=== PATIENT | female | born 1935 | race Caucasian/White ===

== ENCOUNTER 2017-01-07 04:06 | Observation (INO) ==
[2017-01-07] MEDS ORDERED: ASPIRIN PO ONE (04:27)
--- NOTE | 2017-01-07 04:29 | PROVIDER DOCUMENTATION ---
HPI-Chest Pain - General Chief Complaint: Chest Pain Stated Complaint: CP Time Seen by Provider: 01/07/17 04:22 Source: patient (Patient is a 81 year old white female with history of atrial fibrillation, HTN,recent hip replacement, and atrial fibrillation who presents by car complaining of 9/10 sharp/dull left sided chest discomfort that radiates down left arm since 0230 today that was not relieved by 3 nitroglycerin. Patient has already taken 1 baby aspirin in past 24 hours[address] Denies [address] of [address] Followed by v belt mold assembler and curer in [place] and Dr. Murray.) Allergies/Adverse Reactions: Patient Allergies Allergy/AdvReac Type Severity Reaction Status Date / Time Penicillins Allergy Severe SWELLING Verified 01/07/17 04:35 Home Medications: Home Medication List Medication Instructions Recorded Confirmed Last Taken Type Buspirone HCl 15 mg PO DAILY 11/14/12 01/07/17 01/06/17 History Hydrochlorothiazide 25 mg PO DAILY 11/14/12 01/07/17 01/06/17 History Levothyroxine [Synthroid] 50 microgm PO DAILY 11/14/12 01/07/17 01/06/17 History Metoprolol Succinate E.r. [Toprol 25 mg PO DAILY 11/14/12 01/07/17 01/06/17 History Xl] Aspirin [Aspirin EC] 81 mg PO DAILY 11/17/15 01/07/17 01/06/17 History Ergocalciferol (Vitamin D2) 1 tab PO DAILY 01/07/17 01/07/17 01/06/17 History [Drisdol] Review of Systems - Adult - REVIEW OF SYSTEMS - ADULT Constitutional: denies: chills, fever Eyes: denies: decreased vision Ears, Nose, Mouth & Throat: reports: no symptoms reported Cardiovascular: reports: chest pain. denies: palpitations, syncope Respiratory: denies: shortness of breath Gastrointestinal: denies: abdominal pain, nausea, vomiting Genitourinary: denies: dysuria Musculoskeletal: denies: back pain, neck pain Integumentary: denies: rash Neurological: reports: no symptoms reported Psychiatric: reports: no symptoms reported Endocrine: reports: no symptoms reported Hematologic/Lymphatic: reports: no symptoms reported Allergic/Immunologic: reports: no symptoms reported All Other Systems: Reviewed and Negative Past History - Adult - PAST MEDICAL HISTORY-ADULT Review of Records: reports: Old Records Reviewed, Nursing Assessment Review, Medications Reviewed, Social history reviewed & non-contributory. Major Childhood Illnesses: reports: denies history Cardiovascular: reports: A-Fib, angina, HTN, hyperlipidemia Endocrine/Immune: reports: thyroid disorder - PRIOR SURGERIES/PROCEDURES Surgical/Procedure History: reports: hysterectomy, orthopedic (extremity), other (sinus surgery,) - IMMUNIZATION STATUS Childhood Immunizations: See Nurse Assessment Flu Vaccine: See Nurse Assessment - FAMILY HISTORY Family History: reviewed, not pertinent - SOCIAL HISTORY Smoking: denies Substance Use: none/never Alcohol Use Frequency: occasionally (wine) Living Situation: alone Physical Exam-General - PHYSICAL EXAM-ADULT Initial Vital Signs Reviewed: Yes - CONSTITUTIONAL General Appearance: appears well, alert, no apparent distress, other ( nondiaphoretic) - EYES Eyes: other (clear) - HEAD, EARS, NOSE, MOUTH & THROAT HENMT: normocephalic/atraumatic, moist mucous membranes - NECK Neck: non-tender, supple - RESPIRATORY Respiratory: lungs clear, other (tender to palpation over left chest wall) - CARDIOVASCULAR Cardiovascular: regular rate, rhythm - GASTROINTESTINAL (ABDOMEN) Abdominal Exam: normal bowel sounds, non tender, soft. negative: guarding, rebound - MUSCULOSKELETAL Back Exam: no CVA tenderness Extremity: normal range of motion, non-tender Peripheral Pulses: radial (R): 2+, radial (L): 2+, dorsalis-pedis (R): 2+, dorsalis-pedis (L): 2+ - SKIN Integumentary: normal color, normal turgor - NEUROLOGIC Neurologic: grossly normal - PSYCHIATRIC Psych/Mental Status: normal mood/affect, normal thought content Progress - PLAN OF CARE/RESULTS Progress/Plan/Lab Results: Vital Signs - 8 hr 01/07/17 04:17 01/07/17 05:25 01/07/17 05:27 Temperature 97.4 F L Pulse Rate 72 68 68 Respiratory Rate 16 17 20 Blood Pressure 129/74 115/69 115/69 O2 Sat by Pulse Oximetry 100 97 97 Laboratory Results - last 24 hr 01/07/17 01/07/17 01/07/17 04:20 04:20 04:20 WBC 13.82 H RBC 4.13 L Hgb 13.0 Hct 38.6 MCV 93.5 MCH 31.5 H MCHC 33.7 RDW Std Deviation 14.4 Plt Count 250 MPV 11.2 H Immature Gran % (Auto) 0.7 H Neut % (Auto) 61.7 Lymph % (Auto) 22.1 [place] % (Auto) 13.4 H Eos % (Auto) 1.9 Baso % (Auto) 0.2 Immature Gran # (Auto) 0.10 H Neut # (Auto) 8.52 H Lymph # (Auto) 3.06 [place] # (Auto) 1.85 H Eos # (Auto) 0.26 Baso # (Auto) 0.03 PT INR PTT (Actin FS) D-Dimer 0.38 Sodium 133 L Potassium 3.8 Chloride 95 L Carbon Dioxide 20 L Anion Gap 18 BUN 21 Creatinine 0.6 Estimated GFR/1.73 m2 > 60 BUN/Creatinine Ratio 35 Glucose 90 Calculated Osmolality 269 Calcium 9.0 Magnesium 1.8 Total Bilirubin 0.40 AST 17 ALT 11 Alkaline Phosphatase 47 Creatine Kinase 48 Troponin T Zea-B-Isoysevkimf Pept Total Protein 6.6 Albumin 3.6 Globulin 3.0 Albumin/Globulin Ratio 1.2 01/07/17 01/07/17 01/07/17 04:20 04:20 04:20 WBC RBC Hgb Hct MCV MCH MCHC RDW Std Deviation Plt Count MPV Immature Gran % (Auto) Neut % (Auto) Lymph % (Auto) [place] % (Auto) Eos % (Auto) Baso % (Auto) Immature Gran # (Auto) Neut # (Auto) Lymph # (Auto) [place] # (Auto) Eos # (Auto) Baso # (Auto) PT 11.3 INR 1.07 PTT (Actin FS) 28.9 D-Dimer Sodium Potassium Chloride Carbon Dioxide Anion Gap BUN Creatinine Estimated GFR/1.73 m2 BUN/Creatinine Ratio Glucose Calculated Osmolality Calcium Magnesium Total Bilirubin AST ALT Alkaline Phosphatase Creatine Kinase Troponin T < 0.010 Lsd-V-Zkwrgjcdrka Pept 83 Total Protein Albumin Globulin Albumin/Globulin Ratio Orders Category Date Time Status Cardiac Monitoring DIRECTED Care 01/07/17 04:23 Active Oxygen Therapy- ED Nursing DIRECTED Care 01/07/17 04:23 Active Saline Loc NOW Care 01/07/17 04:23 Active CHEST-PORTABLE [RAD] Stat Exams 01/07/17 04:24 Taken CBC WITH ELECTRONIC DIFF [HEME] Stat Lab 01/07/17 04:20 Completed CK PROFILE [SP CHEM] Stat Lab 01/07/17 04:20 Completed COMPREHENSIVE METABOLIC PANEL [CHEM] Stat Lab 01/07/17 04:20 Completed D-DIMER [CHEM] Stat Lab 01/07/17 04:20 Completed MAGNESIUM [CHEM] Stat Lab 01/07/17 04:20 Completed PRO B-NATRIURETIC PEPTIDE Stat Lab 01/07/17 04:20 Received PROTIME WITH INR [COAG] Stat Lab 01/07/17 04:20 Completed PTT [COAG] Stat Lab 01/07/17 04:20 Completed TROPONIN T Stat Lab 01/07/17 04:20 Completed Aspirin Med 01/07/17 04:27 Discontinued 243 mg PO NOW ONE EKG [EKG] Stat Ther 01/07/17 04:09 Draft EKG [EKG] Stat Ther 01/07/17 05:26 Ordered Result Diagrams: 01/07/17 04:20 01/07/17 04:20 - EKG 1 Time of EKG reading by physician:: 04:13 EKG Read and Signed by:: Wagner Zhao Rate: 75 [place]: normal QRS: normal [place] Interval: normal ST Wave: normal Prior EKG Comparison: no prior EKG Comments: no STEMI - XRAY 1 XRAY Study: Chest XRAY Interpretation: nad - CONSULTS/PCP/HOSPITALIST Notification #1 *Consult/PCP/Hospitalist*: Dr. Carbajal, hospitalist Time Discussed: 05:28 Consult Disposition: Admit Departure - Departure Time of Disposition Decision: 05:30 DIAGNOSIS: Chest pain Qualifiers: Chest pain type: unspecified Qualified Code(s): R07.9 - Chest pain, unspecified Disposition: ADMITTED INPATIENT 09 Certified Medical Emergency: Emergent Condition: Stable Referrals and Follow-Ups: Meggan Murray MD [Primary Care Provider] - - Critical Care Note This patient required my direct & personal management of CC.: No
[2017-01-07 04:53] LABS: MANUAL DIFF NEEDED? NO
[2017-01-07 04:56] LABS: BASO% 0.2 % (0.0-0.8); EOS# 0.26 X1000 (0.0-0.7); EOS% 1.9 % (0.0-10.0); HEMATOCRIT 38.6 % (37.0-47.0); IMM GRAN% 0.7 % (0.0-0.5); LYMPH# 3.06 X1000 (1.2-3.4); LYMPH% 22.1 % (20.5-51.1); MCH 31.5 PG (27-31); MCHC 33.7 g/dL (33-37); MCV 93.5 FL (81-99); MONO# 1.85 X1000 (0.11-0.59); MONO% 13.4 % (1.7-9.3); MPV 11.2 FL (7.4-10.4); NEUT% 61.7 % (42.2-75.2); PLT 250 X1000 (130-400); RBC 4.13 XMIL (4.2-5.4)
[2017-01-07 05:06] LABS: INR 1.07; PROTIME 11.3 Seconds (9.2-11.7); PTT 28.9 Seconds (22.0-36.0)
[2017-01-07 05:18] LABS: AGAP 18; ALBUMIN 3.6 g/dL (3.5-5.0); ALKALINE PHOSPHATASE 47 U/L (32-104); BUN 21 mg/dL (8-22); CHLORIDE 95 mmol/L (98-107); CK PROFILE 48 U/L (24-173); COSMO 269; GOT 17 U/L (10-30); GPT 11 U/L (10-36); MAGNESIUM 1.8 mg/dL (1.5-2.7); POTASSIUM 3.8 mmol/L (3.5-5.1); SODIUM 133 mmol/L (136-145); TCO2 20 mmol/L (25-35); TOTAL PROTEIN 6.6 g/dL (6.3-8.3)
--- NOTE | 2017-01-07 05:18 | EKG Report ---
Test Performed on : 01/07/2017 04:12:36 AM Test Reason : CP Blood Pressure : / mmHG Vent. Rate : 075 BPM Atrial Rate : 075 BPM P-R Int : 230 ms QRS Dur : 070 ms QT Int : 396 ms P-R-T Axes : 047 008 087 degrees QTc Int : 442 ms Sinus rhythm. with 1st degree AV block. with premature atrial complexes. Septal infarct , age undetermined Abnormal ECG When compared with ECG of 17-NOV-2015 00:26, premature ventricular complexes. are no longer present Septal infarct is now present T wave inversion now evident in Lateral leads Unconfirmed Result
[2017-01-07] MEDS ORDERED: MORPHINE IV ONE (05:30)
[2017-01-07] MEDS ORDERED: ZOFRAN IV ONE (05:31)
--- NOTE | 2017-01-07 06:34 | EKG Report ---
Test Performed on : 01/07/2017 05:31:35 AM Test Reason : CP Blood Pressure : / mmHG Vent. Rate : 065 BPM Atrial Rate : 065 BPM P-R Int : 258 ms QRS Dur : 078 ms QT Int : 418 ms P-R-T Axes : 043 010 087 degrees QTc Int : 434 ms Sinus rhythm. with 1st degree AV block. Septal infarct (cited on or before 07-JAN-2017) Abnormal ECG When compared with ECG of 07-JAN-2017 04:12, (Unconfirmed) premature atrial complexes. are no longer present Unconfirmed Result
[2017-01-07] MEDS ORDERED: TORADOL IV ONE (06:40)
[2017-01-07] MEDS ORDERED: NS 1,000 ML IV SCH (06:41)
[2017-01-07 07:16] LABS: URINE MICRO REVIEW NEEDED? NO; URINE SOURCE CLEAN CATCH
--- NOTE | 2017-01-07 07:16 | HISTORY AND PHYSICAL ---
CHIEF COMPLAINT: Chest pain. HISTORY OF PRESENT ILLNESS: This is an 81-year-old female with hypertension who presents from home with chest pain left-sided radiating to her shoulder and arm and back starting 2 or 3 o'clock this morning. The patient has a history of recurrent chest pain with a kind of a negative workup. She was here last year in October, even had a cardiac cath which was negative. She now sees a teachers' aide in [place], Dr. Ham, maybe, and is being followed by her. She just had a workup in October including I think what sounds like a chemical stress test, a pharmacological stress test which was negative. She did have some cardiac issues associated with her hip surgery. She had recent left hip surgery. Again pain was described as a 9/10, sharp, radiating to her back, shoulder and arm. No shortness of breath or nausea. Workup in the ER was negative. She was placed in observation as pain. PAST MEDICAL HISTORY: 1. Hypertension. She may have an atrial arrhythmias, not 100% on that. 2. Depression, anxiety. 3. Hypothyroidism. PAST SURGICAL HISTORY: She has had the hip fracture repair. SOCIAL HISTORY: No tobacco. Occasional alcohol. I think she lives alone. FAMILY HISTORY: Positive for CAD in mother and father who were both , I think, later in life associated with that. ALLERGIES: Penicillin. MEDICATIONS: 1. Aspirin 81 daily. 2. Buspirone 15 [place]. 3[place] [address] units daily. 4. Hydrochlorothiazide 25 daily. 5. Synthroid 50 daily. 6. Toprol-XL 25 daily. REVIEW OF SYSTEMS: Otherwise negative. PHYSICAL EXAMINATION: VITAL SIGNS: Blood pressure 115/69, heart rate 68, respiratory rate 20, temperature 97.4 degrees, 97% on room air. GENERAL: A well-developed female in no acute distress. HEAD: Normocephalic, atraumatic. EYES: Pupils equal, round, reactive to light. Extraocular movements were intact. EAR/NOSE/THROAT: Moist mucous membranes. NECK: Supple. CARDIOVASCULAR EXAM: Regular rate and rhythm. No thyromegaly. CARDIOVASCULAR: Regular rate and rhythm. PULMONARY: Bilateral breath sounds. Clear to auscultation. GI: Soft, nontender, nondistended. Bowel sounds are positive. EXTREMITIES: No clubbing or cyanosis. LYMPHATICS: No peripheral edema. NEUROLOGICAL: Nonfocal. MUSCULOSKELETAL: 4/5 in all 4 extremities. LABORATORY DATA: White count of 13, CMP was normal. 1. Atypical chest pain. We will continue to monitor with serial cardiac enzymes. She has had a negative workup in the past and a recent negative workup, so I am going to get cardiology's opinion just to see if anything else needs to be done besides a rule out, and then patient really wants to go home so, we will follow accordingly cardiac recommendations. 2. Hypertension. Continue regular medications. I am going to put her on some Prilosec, and I think this may be more musculoskeletal related to the intense physical therapy she did the day before. We will continue to follow. cc: MD Meggan Ponce MD
[2017-01-07 07:19] LABS: BILIRUBIN URINE NEGATIVE (NEGATIVE); BLOOD URINE NEGATIVE (NEGATIVE); COLOR YELLOW; GLUCOSE URINE NEGATIVE (NEGATIVE); LEUKOCYTES URINE SMALL (NEGATIVE); NITRITE URINE NEGATIVE (NEGATIVE); PH URINE 5.5; PROTEIN URINE NEGATIVE (NEGATIVE); SP GRAVITY URINE 1.013; TURBIDITY URINE CLEAR (CLEAR); UROBILINOGEN URINE NORMAL (NORMAL)
[2017-01-07 07:20] LABS: UR EPITHELIAL CELLS <10 /HPF (<10); URINE BACTERIA NEGATIVE /HPF; URINE CULTURE NEEDED? YES; URINE RBC <10 /HPF (<10); URINE WBC <10 /HPF (<10)
--- NOTE | 2017-01-07 07:24 | Diag Imaging Result Doc PS360 ---
CHEST-PORTABLE - 01/07/2017 INDICATION: chest pain TECHNIQUE: COMPARISON: 11/16/2015 FINDINGS: Stable calcified granulomas in the left lung base. No focal infiltrates, pneumothorax, or pleural effusion. Heart size is normal. IMPRESSION: Negative exam. Electronically signed by Ted Ordoñez 01/07/2017 7:22 AM
[2017-01-07 08:20] VITALS: BP 124/63
[2017-01-07] MEDS ORDERED: TYLENOL PO PRN (08:38)
[2017-01-07] MEDS ORDERED: PRILOSEC PO SCH (08:38)
[2017-01-07] MEDS ORDERED: ZOFRAN IV PRN (08:38)
[2017-01-07] MEDS ORDERED: ASPIRIN EC PO SCH (09:00)
[2017-01-07] MEDS ORDERED: BUSPAR PO SCH (09:00)
[2017-01-07] MEDS ORDERED: TOPROL XL PO SCH (09:00)
[2017-01-07] MEDS ORDERED: HYDROCHLOROTHIAZIDE PO SCH (09:00)
--- NOTE | 2017-01-07 09:40 | Diag Imaging Result Doc PS360 ---
SHOULDER-LEFT - 01/07/2017 INDICATION: pain TECHNIQUE: Three views COMPARISON: None FINDINGS: Bones are intact and normally aligned. Joint spaces and soft tissues are clear. IMPRESSION: Negative exam. Electronically signed by Ted Ordoñez 01/07/2017 9:38 AM
[2017-01-07] MEDS ORDERED: SYNTHROID PO SCH (10:00)
--- NOTE | 2017-01-07 11:31 | CONSULTATION ---
DATE OF CONSULTATION: 01/07/2017 HISTORY OF PRESENT ILLNESS: This is an 81-year-old lady. Cardiology was consulted for chest pain. She complains of having retrosternal chest discomfort, which she describes as sharp in character with radiation to the left arm. She is followed by a ethnographer in [place]. We had seen her here last year. She had a left heart catheterization, which was normal. The patient does not state that this was exertional chest pain, and she also states that there is tenderness to touch. She came to the emergency room and was admitted. Electrocardiogram was negative. Cardiac enzymes were negative. REVIEW OF SYSTEMS: A 14-point review of systems was done.Gastrointestinal: There is no history of nausea, vomiting, diarrhea. There is no history of hematemesis or melena. Central nervous system: No focal weakness to suggest a CVA or TIA. Genitourinary: There is no dysuria or hematuria. Respiratory: There is no history of cough, expectoration, hemoptysis. There is no history of fevers or chills. PAST MEDICAL HISTORY: 1. Palpitations. 2. History of dizziness in the past. 3. Hypertension. 4. A left heart catheterization in 2016, normal coronary arteries. 5. Gastroesophageal reflux disease and diverticulitis. 6. Hypothyroidism. 7. Skin cancer. 8. Gastroesophageal reflux disease. 9. Hysterectomy. 10. Breast biopsy. ALLERGIES: She is allergic to penicillin. SOCIAL HISTORY: She does not smoke. She is . There is no history of alcohol abuse. CURRENT MEDICATIONS: Her medications include at home she has been taking metoprolol 25 mg, hydrochlorothiazide 25, buspirone 15, levothyroxine 15, enteric-coated aspirin, vitamin D. PHYSICAL EXAMINATION: Vital Signs: Blood pressure was 124/63. Cardiovascular/Neck: Normal jugular venous pressure. There was no thyromegaly. No carotid bruit. First and second heart sounds were heard. There was no S3 gallop. Respiratory: Normal air entry. There are no crepitations or rhonchi. Abdomen: Soft, nontender. There was no guarding or rigidity. Bowel sounds were heard. Central Nervous System: Alert and was able to move 4 extremities. Extremities: Examination revealed no pedal edema. HEENT: Atraumatic, normocephalic. Pupils were equal and reacting to light. Musculoskeletal: The examination of her chest wall revealed tenderness in the 3rd and 4th costochondral junction. LABORATORY EXAMINATION: She was ruled out for myocardial infarction by cardiac enzymes. Sodium 133, potassium 3.8, BUN 21, creatinine 0.6. ASSESSMENT AND PLAN: Ms. Tyra Mno is an 81-year-old lady with a history of hypothyroidism, gastroesophageal reflux disease, and hypertension who is admitted with chest pain. She has significant tenderness in the chest wall. This is likely to be secondary to musculoskeletal pain. I would recommend nonsteroidal anti-inflammatory drugs. From a cardiac standpoint, her cardiac enzymes are negative. Left heart catheterization in 2016 revealed normal coronary arteries. RECOMMENDATIONS: From a cardiac standpoint, we will manage medically. Thank you for the consultation. We will follow hospital course. cc: Steve Vernon MD
[2017-01-12] MEDS ORDERED: VITAMIN D PO SCH (09:00)
--- NOTE | 2017-02-19 03:59 | DISCHARGE SUMMARY ---
ADMISSION DATE: 01/07/2017 DISCHARGE DATE: 01/07/2017 ADMISSION DIAGNOSES: 1. Atypical chest pain. 2. Hypertension. DISCHARGE DIAGNOSES: 1. Atypical chest pain, resolved. 2. Hypertension, stable. PROCEDURES AND FINDINGS: On 01/07/2017, she had an EKG done, which revealed sinus rhythm with a first-degree AV block, with PACs, with a rate of 75, QTc was 442. Repeat EKG on 01/07 revealed sinus rhythm with first-degree AV block, with a rate 65, QTc 434. CONSULTATIONS: Dr. Vernon. HOSPITAL COURSE: Ms. Mon is an 81-year-old female with a history of hypertension, who presented due to chest pain, left-sided, that was radiating down her arm, shoulder, arm, and back. She states she has had a history of recurrent chest pain, with a negative cardiac workup. She was evaluated here last year in October, and her cardiac cath then was negative. She is now followed by Dr. Ham in [place], who is a seat trimmer. She denies shortness of breath or any nausea. Her cardiac enzymes and workup in the ER was negative. She was admitted for observation. Dr. Vernon was consulted and followed the patient. His suggestions were that her pain was musculoskeletal-related, and suggested NSAIDs for pain. He also stated that her left heart catheterization was done in 2015, revealed normal coronary arteries. The patient had no acute events throughout her hospital stay. Her vital signs were stable. DISCHARGE VITAL SIGNS: The patient is afebrile. Heart rate 65, respirations 13 , blood pressure 124/63, O2 saturations 94% on room air. DISCHARGE LABORATORY STUDIES: White cell count 13, hemoglobin 13, hematocrit 38.6, platelets 250,000. Sodium 133, potassium 3.8, chloride 95, BUN 21, creatinine 0.6, glucose 90. IMAGING STUDIES: On January 07, she had a chest x-ray done, which revealed stable encapsulated granulomas in the left lung base. Heart size was normal. On January 07, she also had a left shoulder x-ray that was done due to some pain she was complaining about. Three-views were done, which was negative. DISCHARGE MEDICATIONS: 1. Metoprolol 25 p.o. daily. 2. Hydrochlorothiazide 25 mg p.o. daily. 3. BuSpar 15 tablets p.o. daily, 1 tablet daily. 4. Synthroid 50 mcg 1 tablet p.o. daily. 5. Aspirin 81 p.o. daily. 6. Vitamin D2 50,000 units capsule, 1 tablet p.o. daily. DISCHARGE ACTIVITY: Resume normal activity as tolerated. DISCHARGE DIET: Regular diet. DISPOSITION: Home DISCHARGE INSTRUCTIONS: To follow up with primary care provider Dr. Murray, in 1 week. Dictated by ESSENCE Guerrero for Bartolo Carbajal MD cc: ESSENCE Guerrero MD [facility]
== END 2017-01-07 14:53 | disposition home or self-care (01) ==
LOC: SUATTDRO → 4N 04:06 → ED 04:06 → SUATTDRO 08:29
PROVIDERS: ATTEND Internal Medicine